=== PATIENT | female | born 1970 | race Caucasian/White ===

== ENCOUNTER → 2020-03-14 18:03 | Outpatient (CLI) | payer OTHER, SELFPAY ==
[2020-03-14 18:58] LABS: Basophils # 0.1 K/mm3 (0-0.2); Basophils % 1.4 % (0.1-2.0); Eosinophils # 0.2 K/mm3 (0.0-0.4); Eosinophils % 2.8 % (0.1-12.0); Hematocrit 41.9 % (37.0-47.0); Hemoglobin 14.5 g/dL (12.2-16.2); Lymphocytes # 2.3 K/mm3 (0.7-4.5); Lymphocytes % 31.2 % (10-50); Mean Corpuscular HGB Conc 34.7 g/dL (31.8-35.4); Mean Corpuscular Hemoglobin 30.5 pg (27.0-31.2); Mean Corpuscular Volume 87.8 fl (81-99); Mean Platelet Volume 9.4 fl (7.4-10.4); Monocytes # 0.4 K/mm3 (0.1-1.0); Monocytes % 5.8 % (1.7-9.3); Neutrophils # 4.3 K/mm3 (1.8-7.8); Neutrophils % 58.9 % (37.0-80.0); Platelet Count 359 K/mm3 (142-424); Red Blood Count 4.77 M/mm3 (4.20-5.40); Red Cell Distribution Width 13.3 % (11.5-17.5); White Blood Count 7.4 K/mm3 (4.8-10.8)
[2020-03-14 19:07] LABS: Chloride 104 mmol/L (98-107); Potassium 4.1 mmoL/L (3.5-5.1); Sodium 139 mmol/L (136-145)
[2020-03-14 19:09] LABS: Alanine Aminotransferase 55 U/L (12-78); Alkaline Phosphatase 96 U/L (38-126); Aspartate Amino Transferase 66 U/L (14-36); Bilirubin,Total 0.7 mg/dl (0.2-1.3); Blood Urea Nitrogen 22 mg/dl (7-17); Estimated Glomerular Filt Rate 76 ml/min (>60); GFR (African American) 92 ML/MIN (>60)
[2020-03-14 19:10] LABS: Albumin Level 4.5 g/dl (3.5-5.0); Albumin/Globulin Ratio 1.4 (1.1-1.8); Anion Gap 13.1 mEq/L (5-15); Calcium 9.6 mg/dl (8.4-10.2); Carbon Dioxide 26 mmol/L (22.0-30.0); Chol/HDL Ratio 3.7 (1-3.5); Cholesterol 201 mg/dl (140-200); Globulin 3.3 g/dL (1.3-3.2); Glucose 98 mg/dl (74-100); HDL Cholesterol 55 mg/dl (40-60); Total Protein,Serum 7.8 g/dl (6.3-8.2); Triglycerides 106 mg/dl (30-150); VLDL Cholesterol 21 mg/dL (0-40)
[2020-03-14 19:21] LABS: Direct LDL Cholesterol 124.93 mg/dL (100-129)
[2020-03-14 19:29] LABS: Erythrocyte Sedimentation Rate 15 mm/hr (0-30)
[2020-03-14 19:38] LABS: Thyroid Stimulating Hormone 1.94 uIU/mL (0.465-4.68)
[2020-03-16 13:38] LABS: Anti-Centromere B Antibodies <0.2 AI (0.0-0.9); Anti-Jo-1 <0.2 AI (0.0-0.9); Anti-Smith Antibody <0.2 AI (0.0-0.9); Antichromatin Antibodies <0.2 AI (0.0-0.9); Antiscleroderma-70 Antibodies <0.2 AI (0.0-0.9); RNP Antibodies 0.3 AI (0.0-0.9); Sjogren's Anti-SS-A <0.2 AI (0.0-0.9); Sjogren's Anti-SS-B <0.2 AI (0.0-0.9)
[2020-03-16 15:50] LABS: Anti-DNA (DS) Ab Qn 20 IU/mL (0-9); RA Latex Turbid. <10.0 IU/mL (0.0-13.9)
== END ==
PROVIDERS: Visit Provider Family Medicine
DX: M25.50 Pain in unspecified joint (principal); E03.9 Hypothyroidism, unspecified
CPT/HCPCS: 80053; 80061; 84443; 85025; 85651; 86225; 86235; 86431

== ENCOUNTER → 2020-06-27 11:31 | Outpatient (CLI) | payer OTHER, SELFPAY ==
--- NOTE | 2020-06-27 11:50 | CT_ITS ---
PROCEDURE: CT ANGIO CHEST CLINCIAL INDICATION: r/o PE Ro pe negative heart cath Saturday soa Chest pain COMPARISON: No exams were available for comparison TECHNIQUE: IV Contrast: 70ML Isovue 370 Axial images obtained with sagittal and coronal reformats. All CT scans at the facility use one or more dose reduction, viz: automated exposure control, ma/kV adjustment per patient size (including targeted exams where dose is matched to indication, i.e. head), or iterative reconstruction technique. FINDINGS: HEART AND MEDIASTINAL STRUCTURES: No evidence of pulmonary embolus, aortic aneurysm, or aortic dissection. Normal heart size. Partially calcified nodes are present in the subcarinal region. There are coronary artery calcifications noted. Small hiatal hernia LUNGS AND PLEURAL SPACES: Patchy density right middle lobe laterally suggesting a small area of atelectasis or infiltrate. Calcified granuloma left lower lobe BONY STRUCTURES: There are mild degenerative changes in the thoracic spine with mild kyphosis UPPER ABDOMEN: Unremarkable. ADDITIONAL FINDINGS: Mild thickening of the gastric wall throughout especially in the antrum. Mild splenomegaly IMPRESSION: 1. No evidence of pulmonary embolus. 2. Minimal atelectatic changes versus patchy infiltrate in the right middle lobe laterally. 3. Small hiatal hernia. 4. Thickening of the gastric wall especially in the antral region. Gastritis is considered. Cannot exclude infiltrative process such as neoplasm in the antrum. Upper endoscopy suggested for further evaluation. Dictated by: Octavio Quiroz MD 06/28/2020 09:25 Octavio Quiroz MD in [place] 06/28/2020 09:25
[2020-06-27 12:10] LABS: Chloride 105 mmol/L (98-107); Sodium 138 mmol/L (136-145)
[2020-06-27 12:13] LABS: Blood Urea Nitrogen 18 mg/dl (7-17); Calcium 9.7 mg/dl (8.4-10.2); Carbon Dioxide 26 mmol/L (22.0-30.0); Estimated Glomerular Filt Rate 76 ml/min (>60); GFR (African American) 92 ML/MIN (>60); Glucose 149 mg/dl (74-100)
[2020-06-27 12:26] LABS: Anion Gap 10.7 mEq/L (5-15); Potassium 3.7 mmoL/L (3.5-5.1)
== END ==
PROVIDERS: Visit Provider Family Medicine
DX: Z01.818 Encounter for other preprocedural examination (principal); R07.9 Chest pain, unspecified; R06.00 Dyspnea, unspecified
CPT/HCPCS: 36415; 71275; 80048; 82565; 84520; Q9967

== ENCOUNTER → 2020-08-02 18:35 | Outpatient (CLI) | payer OTHER, SELFPAY ==
[2020-08-02 19:21] LABS: Basophils # 0.1 K/mm3 (0-0.2); Basophils % 0.9 % (0.1-2.0); Eosinophils # 0.2 K/mm3 (0.0-0.4); Eosinophils % 2.9 % (0.1-12.0); Hematocrit 45.2 % (37.0-47.0); Hemoglobin 14.4 g/dL (12.2-16.2); Lymphocytes # 2.5 K/mm3 (0.7-4.5); Mean Corpuscular Hemoglobin 28.6 pg (27.0-31.2); Mean Corpuscular Volume 89.7 fl (81-99); Monocytes # 0.5 K/mm3 (0.1-1.0); Neutrophils # 4.8 K/mm3 (1.8-7.8); Neutrophils % 59.2 % (37.0-80.0); Platelet Count 345 K/mm3 (142-424); Red Blood Count 5.04 M/mm3 (4.20-5.40); Red Cell Distribution Width 13.4 % (11.5-17.5)
[2020-08-02 19:39] LABS: Chloride 102 mmol/L (98-107); Potassium 4.2 mmoL/L (3.5-5.1); Sodium 139 mmol/L (136-145)
[2020-08-02 19:41] LABS: Alanine Aminotransferase 25 U/L (12-78); Alkaline Phosphatase 86 U/L (38-126); Anion Gap 12.2 mEq/L (5-15); Aspartate Amino Transferase 32 U/L (14-36); Bilirubin,Total 0.8 mg/dl (0.2-1.3); Blood Urea Nitrogen 26 mg/dl (7-17); Carbon Dioxide 29 mmol/L (22.0-30.0); Estimated Glomerular Filt Rate 66 ml/min (>60); GFR (African American) 80 ML/MIN (>60)
[2020-08-02 19:42] LABS: Albumin Level 4.8 g/dl (3.5-5.0); Albumin/Globulin Ratio 1.4 (1.1-1.8); Calcium 9.9 mg/dl (8.4-10.2); Globulin 3.5 g/dL (1.3-3.2); Glucose 75 mg/dl (74-100); Total Protein,Serum 8.3 g/dl (6.3-8.2)
[2020-08-02 20:12] LABS: Thyroid Stimulating Hormone 0.57 uIU/mL (0.465-4.68)
== END ==
PROVIDERS: Visit Provider Family Medicine
DX: R07.9 Chest pain, unspecified (principal)
CPT/HCPCS: 80053; 84443; 85025

== ENCOUNTER → 2020-08-24 09:03 | Outpatient (CLI) | payer OTHER, SELFPAY ==
[2020-08-24 10:08] LABS: Coronavirus 19 IgG Antibody Positive (Negative); Coronavirus 19 IgM Antibody Negative (Negative)
== END ==
PROVIDERS: Visit Provider Internal Medicine Gastroenterology
DX: Z01.818 Encounter for other preprocedural examination (principal); Z20.822 Contact with and (suspected) exposure to COVID-19; Z13.810 Encounter for screening for upper gastrointestinal disorder; K21.00 Gastro-esophageal reflux disease with esophagitis, without bleeding
CPT/HCPCS: 36415; 86328

== ENCOUNTER 2020-08-26 08:25 | Day surgery (SDC) | payer OTHER, SELFPAY ==
[2020-08-22 12:25] VITALS: BMI 39.5
[2020-08-26] VITALS (7 sets, daily range): BP systolic 108–136; BP diastolic 69–82; PULSE 56–71; RESP 18; TEMP 36.1; O2SAT 93–99
--- NOTE | 2020-08-26 09:56 | P.PN_ITS ---
[facility] Anesthesia Checklist - Structural Data Admitted From: Home Planned Operative Procedure/s: egd Consent for Planned Operative Procedure(s) Verified: Yes - Airway Assessment C-Spine Mobility Assessed: Yes TMJ Mobility Assessed: Yes Dentition: Good Dentition - Neurological Assessment Level of Consciousness: Awake, Alert, Appropriate - Anesthesia Plan Anesthesia Risk discussed: Yes Anesthesia Plan: Patient unable to respond/answer ASA Class: II Anesthesia Type: MAC [facility] History I have reviewed the patient's past medical history: Yes Medical History: Reports:: Depression, Gastroesophageal Reflux Disease(GERD) Denies:: Cancer, Diabetes Mellitus Type 1, Diabetes Mellitus Type 2, MRSA, Seizures *Have you ever received a pneumonia vaccine?: No *Have you received a flu vaccine this season?: No Other Medical History: Reports: Hypothyroidism Anesthesia experience/problems:: none Laterality Cases: Bilateral: Carpal Tunnel Release, Tonsillectomy Other Surgeries: Yes: Cardiac Catheterization, Cholecystectomy, Colonoscopy, C- section, Hysterectomy-Partial Amputation: No Fractures: No - *Social History Last grade of school completed: Advanced degree Smoking Status: Never smoker Alcohol Intake: never Substance Use Type: denies use *Occupational Status:: employed Housing: house *Travel in the last 8 weeks: None - Psychiatric History Pschychiatric History:: Reports:: Depression Family Hx:: Unable to obtain, No significant family history
--- NOTE | 2020-08-26 10:06 | HMH.PROC ---
[facility] Procedure Note Procedure Note:: Upper Endoscopy Procedure Report: Esophagogastroduodenoscopy with cold biopsies Endoscopost: Dany Nelson II, MD Referring Physician: Ankush Ansari MD Date of Procedure: August 26, 2020 Equipment: Olympus GIF 190 standard upper endoscope Sedation: MAC sedation Indications: Mrs. Mustafa is a 50-year-old female who had a CTA on June 28, 2020 and this did show some thickening of the gastric wall in the antrum of the stomach with differential including gastritis versus infiltrative process. The patient does report epigastric abdominal pain and pain across the upper abdomen. She has had gassiness. She also reports early satiety and some bloating and belching. She reports postprandial bowel urgency. She reports no melena, hematochezia or weight loss. She has had no dysphagia. Her heartburn and reflux is controlled with omeprazole. This is her first upper endoscopy. Procedure: Prior to the procedure, a history and physical exam was performed, and patient's medications and allergies were reviewed. The risks, benefits and alternatives of the sedation and procedure were discussed with the patient. All questions were answered and informed consent was obtained. The patient was brought to the procedure room. Patient identification and proposed procedure were verified by the physician and the nurse. The patient was placed in a left lateral decubitus position and the scope was passed under direct vision. Throughout the procedure, the patient's blood pressure, pulse, and oxygen saturations were monitored continuously. The upper GI endoscopy was accomplished without difficulty. The patient tolerated the procedure well. Findings: The scope was passed directly into the upper esophagus and advanced to the third portion of the duodenum. The post bulbar duodenum and duodenal bulb were normal with normal mucosa and conniventes. The scope was withdrawn through a normal duodenal bulb and pylorus into the stomach. There was mild linear reactive gastropathy of the antrum with bile reflux. There was also an 8 mm submucosal polypoid nodule in the antrum. Because of its submucosal nature, well biopsies were taken to get deeper tissue for histologic analysis. The remainder of the body and fundus of the stomach were grossly normal. There was very minimal chronic gastritis. Upon retroflexion there was no hiatal hernia. 2 biopsies were taken in the antrum and along the lesser curvature for histology to rule out gastritis and/or H pylori. The scope was then withdrawn into the esophagus. There was no evidence of reflux esophagitis or Pedro's. There was no Schatzki's ring. The remainder of the esophageal mucosa was normal. Impression: 1. Bile reflux with mild linear reactive gastropathy 2. Gastric antral polypoid nodule (8 mm)?submucosal lesion rule out lipoma versus leiomyoma versus small GIST Plan: I will follow-up the biopsies. I do not feel that this small antral lesion is causing her symptoms of dyspepsia. We will discuss dietary measures and treatment options. If the biopsies of the polypoid nodule are nondiagnostic, I would consider endoscopic ultrasound.
== END 2020-08-26 11:10 | disposition home or self-care (01) ==
LOC: OUTP 08:26
PROVIDERS: PCP Family Medicine; Visit Provider Internal Medicine Gastroenterology
PROC: 0DJ08ZZ Inspection of Upper Intestinal Tract, Via Natural or Artificial Opening Endoscopic (ICD-10-PCS; CPT 43235; principal; 2020-08-26 09:30)
DX: K21.9 Gastro-esophageal reflux disease without esophagitis (principal); K31.9 Disease of stomach and duodenum, unspecified; K31.7 Polyp of stomach and duodenum; F32.9 Major depressive disorder, single episode, unspecified; J45.909 Unspecified asthma, uncomplicated; E03.9 Hypothyroidism, unspecified; M79.7 Fibromyalgia
CPT/HCPCS: 43239

== ENCOUNTER → 2020-09-16 11:27 | Outpatient (CLI) | payer OTHER, SELFPAY ==
[2020-09-16 13:41] LABS: Coronavirus 19 IgG Antibody Negative (Negative); Coronavirus 19 IgM Antibody Negative (Negative)
== END ==
PROVIDERS: Visit Provider Internal Medicine Gastroenterology
DX: Z01.812 Encounter for preprocedural laboratory examination (principal); Z20.822 Contact with and (suspected) exposure to COVID-19; Z12.11 Encounter for screening for malignant neoplasm of colon
CPT/HCPCS: 36415; 86328

== ENCOUNTER 2020-09-19 09:45 | Day surgery (SDC) | payer OTHER, SELFPAY ==
[2020-09-17 11:04] VITALS: BMI 38.5
[2020-09-19 10:03] VITALS: BP 145/83; PULSE 77; RESP 16; TEMP 36.3; O2SAT 97
[2020-09-19 10:24] VITALS: O2SAT 98
--- NOTE | 2020-09-19 10:52 | P.PN_ITS ---
[facility] Anesthesia Checklist - Structural Data Planned Operative Procedure/s: colonoscopy Consent for Planned Operative Procedure(s) Verified: Yes - Airway Assessment C-Spine Mobility Assessed: Yes TMJ Mobility Assessed: Yes Dentition: Good Dentition - Neurological Assessment Level of Consciousness: Awake, Alert, Appropriate - Anesthesia Plan Anesthesia Risk discussed: Yes Anesthesia Plan: Verified ASA Class: II Anesthesia Type: MAC [facility] History I have reviewed the patient's past medical history: Yes Medical History: Reports:: Depression, Gastroesophageal Reflux Disease(GERD) Denies:: Cancer, Diabetes Mellitus Type 1, Diabetes Mellitus Type 2, Internal Pacemaker, MRSA, Seizures *Have you ever received a pneumonia vaccine?: No *Have you received a flu vaccine this season?: No Other Medical History: Reports: Hypothyroidism Anesthesia experience/problems:: none Laterality Cases: Bilateral: Carpal Tunnel Release, Tonsillectomy Other Surgeries: Yes: Cardiac Catheterization, Cholecystectomy, Colonoscopy, C- section, Hysterectomy-Partial. No: Pacemaker Amputation: No Fractures: No - *Social History Last grade of school completed: Some college Smoking Status: Never smoker Alcohol Intake: never Substance Use Type: denies use *Occupational Status:: unemployed Housing: house Household Members: none *Travel in the last 8 weeks: None - Psychiatric History Pschychiatric History:: Reports:: Depression Family Hx:: Unable to obtain, No significant family history
--- NOTE | 2020-09-19 10:54 | P.PCN_ITS ---
[facility] Procedure Note Procedure Note:: Colonoscopy Procedure Report: Colonoscopy with cold snare polypectomy Endoscopist: Dany Nelson II, MD Referring physician: Ankush Ansari MD Date of Procedure: September 19, 2020 Equipment: Olympus 190 variable stiffness pediatric colonoscope Sedation: MAC sedation Indication: Mrs. Shaikh is a 50-year-old female who is here for diagnostic colonoscopy. She has had pain across the mid abdomen with bloating, fullness and some belching. She did have a CAT scan that showed some thickening of the lower stomach (on June 28, 2020). She had an EGD with ct on 08/26/2020 that showed some bile gastropathy. The patient does state that her sister had colon cancer at the age of 53. Her last colonoscopy was 3 to 4 years ago and she had a couple of polyps removed. She reports no rectal bleeding or weight loss. She reports regular bowel function. Procedure: Prior to the procedure, a history and physical exam was performed, and patient's medications and allergies were reviewed. The risks, benefits and alternatives of the sedation and procedure were discussed with the patient. All questions were answered and informed consent was obtained. The patient was brought to the procedure room. Patient identification and proposed procedure were verified by the physician and the nurse. The patient was placed in a left lateral decubitus position and the scope was passed under direct vision. Throughout the procedure, the patient's blood pressure, pulse, and oxygen saturations were monitored continuously. The colonoscopy was accomplished without difficulty. The patient tolerated the procedure well. Findings: On digital rectal examination there was normal rectal tone. There were no external hemorrhoids. The colonoscope was introduced through the anal canal to the rectum and advanced to the cecum. The ileocecal valve and appendiceal orifice were identified. The scope was advanced a short distance into the ileum which appeared grossly normal. The scope was then withdrawn into the colon. The cecum, ascending, transverse and descending colon were grossly normal. The sigmoid colon was normal. There was a diminutive 3 to 4 mm polyp in the rectosigmoid removed via cold snare polypectomy. The remaining rectum was normal. There were no other mucosal abnormalities identified. Upon retroflexion within the rectum there were grade 1 internal hemorrhoids.The preparation was good throughout with [place] Preparation Score of 8 out of 9. The cecal time was 12 minutes. Impression: 1. Diminutive rectosigmoid polyp 2. Grade 1 internal hemorrhoids Plan: I do feel the patient most likely has some obstipation/incomplete defecation. We will discuss additional dietary measures and treatment options of her functional abdominal pain/visceral sensitivity. I will follow up the polyp histology and recommend repeat screening/surveillance colonoscopy in 5 years based upon her family history.
[2020-09-19 10:55] VITALS: BP 95/59; PULSE 67; RESP 18; O2SAT 94
[2020-09-19 11:05] VITALS: BP 95/59; PULSE 66; RESP 18; TEMP 36.3; O2SAT 96
[2020-09-19 11:15] VITALS: BP 110/70; PULSE 68; RESP 18; O2SAT 97
[2020-09-19 11:25] VITALS: BP 118/72; PULSE 70; RESP 18; O2SAT 97
== END 2020-09-19 12:08 | disposition home or self-care (01) ==
LOC: OUTP 09:48
PROVIDERS: PCP Family Medicine; Visit Provider Internal Medicine Gastroenterology
PROC: 0DJD8ZZ Inspection of Lower Intestinal Tract, Via Natural or Artificial Opening Endoscopic (ICD-10-PCS; CPT 45378; principal; 2020-09-19 11:30)
DX: K63.5 Polyp of colon; K64.0 First degree hemorrhoids; Z80.0 Family history of malignant neoplasm of digestive organs; Z86.010 Personal history of colon polyps; F32.9 Major depressive disorder, single episode, unspecified; K21.9 Gastro-esophageal reflux disease without esophagitis; E03.9 Hypothyroidism, unspecified; Z87.39 Personal history of other diseases of the musculoskeletal system and connective tissue; Z79.899 Other long term (current) drug therapy
CPT/HCPCS: 45385

== ENCOUNTER 2020-11-14 16:29 | Emergency (ER) | payer OTHER, SELFPAY ==
[2020-11-14 16:30] VITALS: BP 184/91; PULSE 86; RESP 30; TEMP 36.6; O2SAT 98; BMI 40.3
--- NOTE | 2020-11-14 16:32 | ECG_ITS ---
APPROVED REPORT Exam: Resting ECG HR:81 bpm ECG Measurements Heart Rate 81 AXES WV 138 P 53 QRSd 76 QRS 12 QT 398 T 23 QTc 462 Conclusion Normal sinus rhythm Possible Left atrial enlargement Borderline ECG Electronically signed by : Ankush Hicks, 11/15/2020 22:00:24
--- NOTE | 2020-11-14 16:33 | XR_ITS ---
PROCEDURE INFORMATION: Exam: XR Chest Exam date and time: 11/14/2020 4:33 PM Age: 50 years old Clinical indication: Cough and shortness of breath; Patient HX: Cough, SOA TECHNIQUE: Imaging protocol: XR of the chest. Views: 1 view. Portable AP exam 5:05 p.m. COMPARISON: Report from CT ANGIO CHEST 06/27/2020 12:39 PM; the images are not available on PACS for comparison at this time. FINDINGS: Tubes, catheters and devices: Overlying alarm security or surveillance monitor electrodes and oxygen tubing. Lungs: Slight hypoventilation. Mild asymmetric interstitial prominence and hazy right pulmonary opacity compared with left, which may be in part artifact from overlying soft tissue shadows, but could be asymmetric airspace disease such as edema or pneumonia. No focal consolidation. Pleural spaces: Unremarkable. No significant pleural effusion. No pneumothorax. Heart/Mediastinum: Cardiac size appears borderline enlarged, accentuated by portable AP technique. The previously reported small hiatal hernia seen on CT is not well demonstrated on this portable chest x-ray. Bones/joints: No definite acute fracture. IMPRESSION: 1. Slight asymmetric interstitial prominence and hazy opacity in the right lung compared with left, possibly artifact from slightly rotated positioning and overlying soft tissue shadows. Differential would be mild asymmetric vascular congestion/edema or pneumonia on the right. 2. No focal consolidation.
[2020-11-14 16:34] VITALS: BMI 39.5
[2020-11-14 16:49] LABS: Chloride 104 mmol/L (98-107); Potassium 3.5 mmoL/L (3.5-5.1); Sodium 138 mmol/L (136-145)
[2020-11-14 16:50] LABS: Basophils # 0.1 K/mm3 (0-0.2); Basophils % 0.6 % (0.1-2.0); Eosinophils # 0.3 K/mm3 (0.0-0.4); Eosinophils % 2.4 % (0.1-12.0); Hematocrit 40.6 % (37.0-47.0); Hemoglobin 14.2 g/dL (12.2-16.2); Lymphocytes % 34.4 % (10-50); Mean Corpuscular HGB Conc 34.8 g/dL (31.8-35.4); Mean Corpuscular Hemoglobin 30.3 pg (27.0-31.2); Mean Corpuscular Volume 86.9 fl (81-99); Mean Platelet Volume 7.1 fl (7.4-10.4); Monocytes # 0.6 K/mm3 (0.1-1.0); Monocytes % 5.3 % (1.7-9.3); Neutrophils # 6.7 K/mm3 (1.8-7.8); Neutrophils % 57.3 % (37.0-80.0); Platelet Count 405 K/mm3 (142-424); Red Blood Count 4.67 M/mm3 (4.20-5.40); Red Cell Distribution Width 13.9 % (11.5-17.5); White Blood Count 11.7 K/mm3 (4.8-10.8)
[2020-11-14 16:51] LABS: Blood Urea Nitrogen 19 mg/dl (7-17); Creatinine Clearance Estimated 155 mL/min (50-200); Estimated Glomerular Filt Rate 76 ml/min (>60); GFR (African American) 92 ML/MIN (>60)
[2020-11-14 16:52] LABS: Alanine Aminotransferase 62 U/L (12-78); Albumin Level 5.1 g/dl (3.5-5.0); Albumin/Globulin Ratio 1.4 (1.1-1.8); Alkaline Phosphatase 114 U/L (38-126); Anion Gap 14.5 mEq/L (5-15); Aspartate Amino Transferase 58 U/L (14-36); Bilirubin,Total 0.7 mg/dl (0.2-1.3); Calcium 9.7 mg/dl (8.4-10.2); Carbon Dioxide 23 mmol/L (22.0-30.0); Globulin 3.6 g/dL (1.3-3.2); Glucose 142 mg/dl (74-100); Total Protein,Serum 8.7 g/dl (6.3-8.2)
[2020-11-14 17:24] LABS: Thyroid Stimulating Hormone 2.97 uIU/mL (0.465-4.68)
[2020-11-14 17:28] VITALS: BP 102/84; PULSE 81; RESP 20; O2SAT 98
--- NOTE | 2020-11-14 17:42 | HMH.EDSOB ---
ED Disposition Clinical Impression: Asthma with exacerbation Qualifiers: Asthma severity: mild Asthma persistence: intermittent Qualified Code(s): J45.21 - Mild intermittent asthma with (acute) exacerbation Community acquired pneumonia Qualifiers: Laterality: right Lung location: lower lobe of lung Qualified Code(s): J18.9 - Pneumonia, unspecified organism Disposition: Home, Self-Care Condition on Discharge: Good Instructions: Pneumonia-Adult Prescriptions: Doxycycline Hyclate [Doxycycline Hyclate 100mg Tablet] 100 mg PO Q12 10 Days #20 tab Prescription Printed methylPREDNISolone [Medrol 4mg tab] 4 mg PO DIRECTED #21 tab Prescription Printed Referrals: Maged Ansari MD [Primary Care Provider] - - Critical Care Critical Care Time: No Attestation: On 11/14/20, the high probability of a clinically significant, sudden or life threatening deterioration of the following system(s) required my full and direct attention, intervention and personal management. The time I documented below is in addition to time spent performing reported procedures but includes the following listed in this critical care notation. Medical Decision Making - Medical Records Medical records reviewed: Yes: I reviewed the patient's medical records. - Bruno Inquiry Pt receiving controlled substance: No Vital Signs: 11/14/20 16:30 11/14/20 17:28 Temperature 98 F Temperature Source Oral Pulse Rate 81 Pulse Rate [Radial] 86 Respiratory Rate 30 H 20 Blood Pressure 102/84 L Blood Pressure [Right Arm] 184/91 H Blood Pressure Mean [Right Arm] 122 Blood Pressure Position [Right Arm] Sitting 02 Sat by Pulse Oximetry 98 98 Oxygen Delivery Method Room Air - Lab Data Lab Results 11/14/20 16:32: WBC 11.7 H, RBC 4.67, Hgb 14.2, Hct 40.6, MCV 86.9, MCH 30.3, MCHC 34.8, RDW 13.9, Plt Count 405, MPV 7.1 L, Neut % (Auto) 57.3, Lymph % (Auto) 34.4, Taylor % (Auto) 5.3, Eos % (Auto) 2.4, Baso % (Auto) 0.6, Neut # (Auto) 6.7, Lymph # (Auto) 4.0, Taylor # (Auto) 0.6, Eos # (Auto) 0.3, Baso # (Auto) 0.1 11/14/20 16:32: Sodium 138, Potassium 3.5, Chloride 104, Carbon Dioxide 23, Anion Gap 14.5, BUN 19 H, Creatinine 0.80, Estimated Creat Clear 155, Estimated GFR 76, Est GFR ( Amer) 92, Glucose 142 H, Calcium 9.7, Total Bilirubin 0.7, AST 58 H, ALT 62, Alkaline Phosphatase 114, Total Protein 8.7 H, Albumin 5.1 H, Globulin 3.6 H, Albumin/Globulin Ratio 1.4, TSH 2.97 Result diagrams: 11/14/20 16:32 11/14/20 16:32 Orders (Tests/Meds): ED MEDICATIONS Generic Name Dose Route Start Last Admin Trade Name Freq PRN Reason Stop Dose Admin Sodium Chloride 10 ml 11/14/20 16:34 Sodium Chloride 0.9% 10ml Vial IV 12/14/20 16:33 NEEDED PRN to Dilute Lorazepam inj Discontinued Medications Generic Name Dose Route Start Last Admin Trade Name Freq PRN Reason Stop Dose Admin Sodium Chloride 1,000 mls @ 999 mls/hr 11/14/20 16:45 11/14/20 16:43 Sod Chlor 0.9% 1000ml Bag IV 11/14/20 17:45 999 mls/hr .Q1H1M ANNY Administration Magnesium Sulfate 2 gm/ Sodium 104 mls @ 100 mls/hr 11/14/20 16:34 11/14/20 16:44 Chloride IV 11/14/20 17:36 100 mls/hr ONCE ONE Administration Lorazepam 1 mg 11/14/20 16:34 11/14/20 16:46 Lorazepam 2mg/Ml Vial IV 11/14/20 16:35 1 mg ONCE ONE Administration - Radiology Data #1 Image(s): Chest Image Reviewed: Yes I reviewed the patient's radiology results, Yes I discussed the image results w/the radiologist, Yes I have reviewed radiologist's interpretation IMPRESSION: 1. Slight asymmetric interstitial prominence and hazy opacity in the right lung compared with left, possibly artifact from slightly rotated positioning and overlying soft tissue shadows. Differential would be mild asymmetric vascular congestion/edema or pneumonia on the right. 2. No focal consolidation. - ECG Data Tracing #1 No ventricular rate 81 bpm, normal TX interval
[2020-11-14 19:04] VITALS: BP 126/74; PULSE 74; RESP 16; TEMP 36.6; O2SAT 98
== END 2020-11-14 19:05 | disposition home or self-care (01) ==
PROVIDERS: Emergency Provider Emergency Medicine; PCP Family Medicine
DX: J18.9 Pneumonia, unspecified organism (principal); J45.21 Mild intermittent asthma with (acute) exacerbation; K21.9 Gastro-esophageal reflux disease without esophagitis; F33.1 Major depressive disorder, recurrent, moderate; Z79.899 Other long term (current) drug therapy
CPT/HCPCS: 71045; 80053; 84443; 85025; 93005; 96365; 96375; 99282

== ENCOUNTER 2020-11-22 16:33 | Emergency (ER) | payer OTHER, SELFPAY ==
[2020-11-22 16:56] VITALS: BP 142/81; PULSE 86; RESP 19; TEMP 36.6; O2SAT 97; BMI 40.6
[2020-11-22 17:24] VITALS: BP 142/81; PULSE 86; RESP 19; TEMP 36.6; O2SAT 97
--- NOTE | 2020-11-22 17:36 | HMH.EDUTC ---
[facility] Disposition Clinical Impression: Cellulitis Qualifiers: Site of cellulitis: trunk Site of cellulitis of trunk: abdominal wall Qualified Code(s): L03.311 - Cellulitis of abdominal wall Disposition: Home, Self-Care Condition on Discharge: Good Instructions: Cellulitis Additional Instructions: Keep the wounds clean and dry. Follow up with your regular doctor. Take the antibiotics as directed and apply the topical antibiotics as directed. Watch the area of redness to make sure it starts getting smaller instead of bigger. GO TO THE ER FOR ANY WORSENING SYMPTOMS Prescriptions: Mupirocin [Bactroban 2% Ointment 22gm tube] 1 applicatio TP TID 7 Days #1 tube Transmission Status: Received by [facility] #[id number] cephALEXin [cephALEXin 500mg capsule] 500 mg PO Q6H 10 Days #40 cap Transmission Status: Received by [facility] #[id number] Referrals: Maged Ansari MD [Primary Care Provider] - Time of Disposition: 17:37 Medical Decision Making - Medical Records Medical records reviewed: No: I reviewed the patient's medical records. - Bruno Inquiry Pt receiving controlled substance: No Vital Signs: 11/22/20 16:56 11/22/20 17:24 Temperature 97.9 F 97.9 F Temperature Source Oral Pulse Rate 86 Pulse Rate [Right Brachial] 86 Respiratory Rate 19 19 Blood Pressure 142/81 H Blood Pressure [Right Arm] 142/81 H Blood Pressure Mean [Right Arm] 101 Blood Pressure Source [Right Arm] Automatic Cuff Blood Pressure Position [Right Arm] Sitting 02 Sat by Pulse Oximetry 97 Oxygen Delivery Method Room Air [facility] HPI - General Stated complaint: bug bite on left side Time Seen by Provider: 11/22/20 17:00 Mode of Arrival: Ambulatory Source of Information: Patient Description of Symptoms (Recalled from Triage Doc. by RN): bite on left abdomin HEENT Symptoms (Recalled from RN notes): No Resp Symptoms (Recalled from RN notes): No Skin Symptoms (Recalled from RN notes): No MS Symptoms (Recalled from RN notes): No Functional Status (Recalled from RN notes): na - History of Present Illness Provider Complaint: She states that she has a red area on her left abdomen. She thinks that she was bit by a bug she thinks. - Related Data Home Medications Medication Instructions Recorded Confirmed Fluticasone/Vilanterol [Breo 1 inh IH DAILY 08/26/20 11/14/20 Ellipta 100-25 Mcg INH] Levothyroxine Sodium [Synthroid 150 mcg PO DAILY 08/26/20 11/14/20 150mcg (0.15mg) tablet] Meloxicam 15 mg PO DAILY 08/26/20 11/14/20 Venlafaxine HCl [Effexor Xr] 75 mg PO DAILY 08/26/20 11/14/20 Previous Rx's Medication Instructions Recorded buspirone 15 mg tablet 15 mg PO TID PRN #90 tab 08/02/20 triamcinolone acetonide 0.1 % 1 applic DENTAL TID PRN #5 g 08/02/20 dental paste pantoprazole 40 mg tablet,delayed 40 mg PO DAILY #90 tab 08/30/20 release Doxycycline Hyclate [Doxycycline 100 mg PO Q12 10 Days #20 tab 11/14/20 Hyclate 100mg Tablet] methylPREDNISolone [Medrol 4mg 4 mg PO DIRECTED #21 tab 11/14/20 tab] Mupirocin [Bactroban 2% Ointment 1 applicatio TP TID 7 Days #1 tube 11/22/20 22gm tube] cephALEXin [cephALEXin 500mg 500 mg PO Q6H 10 Days #40 cap 11/22/20 capsule] Allergies Allergy/AdvReac Type Severity Reaction Status Date / Time No Known Allergies Allergy Verified 11/22/20 17:23 - Worker's Comp Is this a Worker's Comp case?: No Is this an H Worker's Comp?: No Is this a [place] Worker's Comp?: No [facility] History - Hepatitis A Screen Drug use history?: No High risk sexual behaviors?: No History of sexually transmitted infection?: No Currently employed?: No Childcare worker?: No Do you have indoor plumbing?: Yes Do you have electricity?: Yes Attestation statement:: This patient has been screened for Hepatitis A risk factors. I have reviewed the patient's past medical history: Yes Medical History: Reports:: Depression, Gastroesophageal Reflux Di
== END 2020-11-22 17:42 | disposition home or self-care (01) ==
PROVIDERS: Emergency Provider Nurse Practitioner Family; PCP Family Medicine
DX: L03.311 Cellulitis of abdominal wall (principal); S30.861A Insect bite (nonvenomous) of abdominal wall, initial encounter; W57.XXXA Bitten or stung by nonvenomous insect and other nonvenomous arthropods, initial encounter; K21.9 Gastro-esophageal reflux disease without esophagitis; E03.9 Hypothyroidism, unspecified; F33.1 Major depressive disorder, recurrent, moderate
CPT/HCPCS: 99202; G0463

== ENCOUNTER → 2020-12-27 12:51 | Outpatient (CLI) | payer OTHER, SELFPAY ==
--- NOTE | 2020-12-27 12:54 | XR_ITS ---
PROCEDURE: XR CHEST 2V CLINICAL HISTORY: pneumonia COMPARISON: CT CT ANGIO CHEST from 06/27/2020 CR XR CHEST PORTABLE from 11/14/2020 FINDINGS: The cardiomediastinal silhouette and pulmonary vascularity are within normal limits. The lungs are clear without infiltrates, suspicious nodules, or pleural effusions. No acute bony abnormalities. IMPRESSION: No acute findings. Dictated by: Kim Cabral 12/27/2020 14:33 Kim Cabral in [facility] 12/27/2020 14:33
== END ==
PROVIDERS: PCP Family Medicine; Visit Provider Family Medicine
DX: R06.02 Shortness of breath (principal)
CPT/HCPCS: 71046

== ENCOUNTER → 2022-05-15 10:47 | Outpatient (CLI) | payer OTHER, SELFPAY ==
[2022-05-15 18:53] LABS: Basophils # 0.1 K/mm3 (0-0.2); Basophils % 1.1 % (0.1-2.0); Eosinophils # 0.4 K/mm3 (0.0-0.4); Eosinophils % 3.7 % (0.1-12.0); Hematocrit 45.8 % (37.0-47.0); Hemoglobin 14.9 g/dL (12.2-16.2); Lymphocytes # 2.8 K/mm3 (0.7-4.5); Lymphocytes % 29.2 % (10-50); Mean Corpuscular HGB Conc 32.6 g/dL (31.8-35.4); Mean Corpuscular Volume 92.2 fl (81-99); Mean Platelet Volume 9.6 fl (7.4-10.4); Monocytes # 0.3 K/mm3 (0.1-1.0); Monocytes % 3.4 % (1.7-9.3); Neutrophils # 5.9 K/mm3 (1.8-7.8); Neutrophils % 62.6 % (37.0-80.0); Platelet Count 442 K/mm3 (142-424); Red Blood Count 4.97 M/mm3 (4.20-5.40); Red Cell Distribution Width 12.9 % (11.5-17.5); White Blood Count 9.4 K/mm3 (4.8-10.8)
[2022-05-15 19:00] LABS: Alanine Aminotransferase 40 U/L (12-78); Albumin Level 4.2 g/dl (3.5-5.0); Albumin/Globulin Ratio 1.4 (1.1-1.8); Alkaline Phosphatase 121 U/L (38-126); Aspartate Amino Transferase 39 U/L (14-36); Bilirubin,Total 0.4 mg/dl (0.2-1.3); Blood Urea Nitrogen 20 mg/dl (7-17); Calcium 9.9 mg/dl (8.4-10.2); Carbon Dioxide 25 mmol/L (22.0-30.0); Chloride 104 mmol/L (98-107); Chol/HDL Ratio 5.2 (1-3.5); Cholesterol 202 mg/dl (140-200); Estimated Glomerular Filt Rate 75 ml/min (>60); GFR (African American) 91 ML/MIN (>60); Glucose 236 mg/dl (74-100); HDL Cholesterol 39 mg/dl (40-60); Sodium 139 mmol/L (136-145); Total Protein,Serum 7.2 g/dl (6.3-8.2); Triglycerides 170 mg/dl (30-150); VLDL Cholesterol 34 mg/dL (0-40)
[2022-05-15 19:13] LABS: Direct LDL Cholesterol 128.09 mg/dL (100-129)
[2022-05-15 19:28] LABS: Thyroid Stimulating Hormone 0.71 uIU/mL (0.465-4.68)
[2022-05-15 20:45] LABS: 25-OH Vitamin D, Total < 12.8 ng/mL (30-100)
== END ==
PROVIDERS: PCP Family Medicine; Visit Provider Family Medicine
DX: E03.9 Hypothyroidism, unspecified (principal); E55.9 Vitamin D deficiency, unspecified; Z79.899 Other long term (current) drug therapy
CPT/HCPCS: 80053; 80061; 82306; 84443; 85025

== ENCOUNTER → 2022-05-29 16:51 | Outpatient (CLI) | payer OTHER, SELFPAY ==
--- NOTE | 2022-05-29 16:58 | XR_ITS ---
PROCEDURE INFORMATION: Exam: XR Right Knee Exam date and time: 05/29/2022 5:00 PM Age: 52 years old Clinical indication: Pain; Hip; Right; Additional info: Pain post fall TECHNIQUE: Imaging protocol: Radiologic exam of the Right knee. Views: 3 views. COMPARISON: No relevant prior studies available. FINDINGS: Bones/joints: There is no evidence of acute fracture. There is no evidence of joint malalignment or dislocation. Soft tissues: No focal soft tissue swelling. IMPRESSION: 1. No evidence of acute fracture. 2. No evidence of acute dislocation.
== END ==
PROVIDERS: PCP Family Medicine; Visit Provider Family Medicine
DX: M25.561 Pain in right knee (principal)
CPT/HCPCS: 73562

== ENCOUNTER → 2022-06-06 09:03 | Outpatient (CLI) | payer OTHER, SELFPAY ==
--- NOTE | 2022-06-06 09:03 | MM_ITS ---
PROCEDURE INFORMATION: Exam: MG Bilateral Screening 3D Mammography Exam date and time: 06/06/2022 9:06 AM Age: 52 years old Clinical indication: Screening examination TECHNIQUE: Imaging protocol: Bilateral Screening tomosynthesis and 2D mammography including computer-aided detection (CAD) when performed. COMPARISON: No relevant prior studies available. FINDINGS: MAMMOGRAPHY: Breast composition: The breasts are almost entirely fatty. Mass: None. Architectural distortion: None. Calcifications: No suspicious calcifications. Asymmetric density: None. Skin thickening: None. Axillary adenopathy: None. IMPRESSION: No mammographic evidence of malignancy. Annual screening is recommended unless otherwise clinically indicated. ASSESSMENT: BI-RADS Category 1: Negative
== END ==
PROVIDERS: PCP Family Medicine; Visit Provider Family Medicine
DX: Z12.31 Encounter for screening mammogram for malignant neoplasm of breast (principal)
CPT/HCPCS: 77063; 77067

== ENCOUNTER → 2022-06-18 13:39 | Outpatient (CLI) | payer OTHER, SELFPAY | PROVIDERS: PCP Family Medicine; Visit Provider Family Medicine | DX: G47.33 Obstructive sleep apnea (adult) (pediatric) (principal); R06.83 Snoring | CPT/HCPCS: G0399 ==

== ENCOUNTER → 2022-07-17 15:48 | Outpatient (CLI) | payer OTHER, SELFPAY ==
--- NOTE | 2022-07-17 15:48 | MR_ITS ---
PROCEDURE INFORMATION: Exam: MR Lumbar Spine Without Contrast Exam date and time: 07/17/2022 4:17 PM Age: 52 years old Clinical indication: Low back pain; Additional info: Low back pain, L radicular pain. TECHNIQUE: Imaging protocol: Magnetic resonance imaging of the lumbar spine without contrast. COMPARISON: No relevant prior studies available. FINDINGS: Bones/joints: Alignment is near anatomic. The vertebral body heights are maintained. The disc space heights are maintained. There is mild desiccation of the disc at L5-S1. The marrow signal is normal. No acute osseous injury. Spinal cord: Visualized cord, conus medullaris and cauda equina are unremarkable without compression. L1-L2: No significant disc bulge or herniation. No severe spinal canal stenosis. No significant neural foraminal narrowing. L2-L3: No significant disc bulge or herniation. No severe spinal canal stenosis. No significant neural foraminal narrowing. L3-L4: No significant disc bulge or herniation. No severe spinal canal stenosis. No significant neural foraminal narrowing. L4-L5: L4-L5 minimal bilateral foraminal zone focal disc protrusions are seen without stenosis of the spinal canal. There is degenerative arthritis of the facets with bilateral facet effusions. There is no significant neural foraminal narrowing present. L5-S1: L5-S1 minimal central focal disc protrusion measuring 4 mm AP x 9 mm transverse with associated posterior annular disc tear. This does not cause stenosis of the spinal canal. There is minimal bilateral facet arthritis without significant neural foraminal compromise. Soft tissues: Unremarkable. IMPRESSION: Minimal L4-S1 degenerative disc disease, as described. No spinal canal or neural foraminal stenosis.
== END ==
PROVIDERS: PCP Family Medicine; Visit Provider Family Medicine
DX: M54.50 Low back pain, unspecified (principal); M54.16 Radiculopathy, lumbar region
CPT/HCPCS: 72148; 76376

== ENCOUNTER 2022-08-17 07:48 | Day surgery (SDC) | payer OTHER, SELFPAY ==
[2022-08-14 16:29] VITALS: BMI 34.7
[2022-08-17] VITALS (7 sets, daily range): BP systolic 88–147; BP diastolic 54–81; PULSE 66–75; RESP 14–18; TEMP 36.2–36.6; O2SAT 93–98
--- NOTE | 2022-08-17 08:16 | EXP.ANES.CKL ---
[facility] Disclaimer: The information contained in this section may have been updated after the patient was seen, as this information can be updated by other users. Medical History History of asthma History of back injury History of depression History of diabetes mellitus History of fibromyalgia History of gastroesophageal reflux (GERD) History of hypothyroidism Surgical History History of carpal tunnel release of both wrists History of hysterectomy History of laparoscopic cholecystectomy History of tonsillectomy Family History Other Family history of diabetes mellitus Family history of heart disease Family history of liver disease Social History Smoking Status: Never smoker alcohol intake: never substance use type: denies use current occupational status: other Travel in the last 8 weeks: None household members: none housing: house current occupational exposures/hazards: No caffeine: No [facility] Anesthesia Checklist Patient Identification Patient Identification: Arm Band and Verbal (Name & ) Structural Data Admitted From: Home Planned Operative Procedure/s: Colonoscopy Consent for Planned Operative Procedure(s) Verified: Yes NPO Status Verified Time NPO: 00:00 Airway Assessment C-Spine Mobility Assessed: Yes TMJ Mobility Assessed: Yes Dentition: Good Dentition Neurological Assessment Level of Consciousness: Awake Hx Seizures: No Numbness or tingling in extremities: No Anesthesia Plan Anesthesia Risk discussed: Yes Anesthesia Plan: Verified ASA Class: III Anesthesia Type: MAC
[2022-08-17 08:20] LABS: POC Glucose,Bedside 116 (70-110)
--- NOTE | 2022-08-17 09:29 | HMH.SCOPE ---
Procedure: Date: 08/17/22 Patient Date of :: 1970 Procedure Performed:: Total colonoscopy Indications:: Patient is a 52-year-old female referred for colonoscopy. She has a family history of colonoscopy with her sister dying of colon cancer at the age of 53. She has a brother who has rectal cancer diagnosed in his 50s. She has had a couple previous colonoscopies with polyps removed. Last colonoscopy was 23 months ago on 09/19/[address] Dany Nelson and she had a diminutive polyp. He recommended repeat colonoscopy in 5 years. Patient states that the GoLytely prep was a very delayed reaction Performing Provider:: Noam Agarwal MD Referring Provider:: Ankush Ansari Sedation:: MAC sedation Procedure:: Patient history was obtained and appropriate physical examination was performed. Patient's medications and allergies were reviewed. Informed consent was obtained after explaining the benefits, alternatives, and risks of the procedure including, but not limited to, bleeding, perforation, missed lesions, and adverse reaction to anesthesia medications. Patient was transported to endoscopy procedure room. Patient was connected to monitoring devices. Throughout the procedure the patient's blood pressure, pulse, and oxygen saturations were monitored continuously. Patient identification and planned procedure were verified by the staff. Patient was positioned in lateral decubitus position. Digital anorectal exam was performed. Variable stiffness Olympus colonoscope was inserted and advanced under direct visualization to the cecum. Adequacy of the colonic preparation was noted. The colonoscope was advanced a short distance into the terminal ileum. The colonoscope was then slowly withdrawn while carefully examining the color, texture, anatomy, and integrity of the mucosoa circumferentially. Within the rectum retroflexion was performed. Colonoscope was then withdrawn. Findings:: She had an extremely poor prep. There was liquid stool and some food matter throughout the colon which was rather thick. This was unable to be fully cleared. The colonoscope was able to be advanced throughout the colon and there were no obvious large polyps or obstructing masses. Recommendations:: Repeat colonoscopy in 6 to 12 months with maximum multi day prep Complications:: None immediately apparent Estimated blood obtained (mL): 0
== END 2022-08-17 10:05 | disposition home or self-care (01) ==
PROVIDERS: PCP Family Medicine; Visit Provider Surgery
PROC: 0DJD8ZZ Inspection of Lower Intestinal Tract, Via Natural or Artificial Opening Endoscopic (ICD-10-PCS; CPT 45378; principal; 2022-08-17 08:30)
DX: Z12.11 Encounter for screening for malignant neoplasm of colon (principal); Z91.199 Patient's noncompliance with other medical treatment and regimen due to unspecified reason; Z79.899 Other long term (current) drug therapy; E11.9 Type 2 diabetes mellitus without complications
CPT/HCPCS: 45378; 82962; J2704

== ENCOUNTER → 2022-09-28 16:15 | Outpatient (CLI) | payer OTHER, SELFPAY ==
[2022-09-28 18:33] LABS: Basophils % 0.5 % (0.1-2.0); Eosinophils # 0.3 K/mm3 (0.0-0.4); Eosinophils % 3.1 % (0.1-12.0); Hematocrit 43.6 % (37.0-47.0); Hemoglobin 14.7 g/dL (12.2-16.2); Lymphocytes # 3.3 K/mm3 (0.7-4.5); Mean Corpuscular HGB Conc 33.8 g/dL (31.8-35.4); Mean Corpuscular Hemoglobin 30.3 pg (27.0-31.2); Mean Corpuscular Volume 89.8 fl (81-99); Mean Platelet Volume 9.2 fl (7.4-10.4); Monocytes # 0.5 K/mm3 (0.1-1.0); Monocytes % 5.3 % (1.7-9.3); Neutrophils # 4.9 K/mm3 (1.8-7.8); Neutrophils % 54.1 % (37.0-80.0); Platelet Count 377 K/mm3 (142-424); Red Blood Count 4.85 M/mm3 (4.20-5.40); Red Cell Distribution Width 13.2 % (11.5-17.5)
[2022-09-28 19:20] LABS: Alanine Aminotransferase 50 U/L (12-78); Albumin Level 4.7 g/dl (3.5-5.0); Albumin/Globulin Ratio 1.5 (1.1-1.8); Alkaline Phosphatase 96 U/L (38-126); Anion Gap 16.5 mEq/L (5-15); Aspartate Amino Transferase 44 U/L (14-36); Bilirubin,Total 0.7 mg/dl (0.2-1.3); Blood Urea Nitrogen 24 mg/dl (7-17); Calcium 9.5 mg/dl (8.4-10.2); Carbon Dioxide 24 mmol/L (22.0-30.0); Chloride 102 mmol/L (98-107); Chol/HDL Ratio 4.6 (1-3.5); Cholesterol 228 mg/dl (140-200); Estimated Glomerular Filt Rate 88 ml/min (>60); GFR (African American) 106 ML/MIN (>60); Globulin 3.2 g/dL (1.3-3.2); Glucose 112 mg/dl (74-100); HDL Cholesterol 50 mg/dl (40-60); Potassium 4.5 mmoL/L (3.5-5.1); Sodium 138 mmol/L (136-145); Total Protein,Serum 7.9 g/dl (6.3-8.2); Triglycerides 112 mg/dl (30-150); VLDL Cholesterol 22 mg/dL (0-40)
[2022-09-28 19:31] LABS: Direct LDL Cholesterol 150.06 mg/dL (100-129)
[2022-09-28 19:35] LABS: 25-OH Vitamin D, Total 32.5 ng/mL (30-100)
[2022-09-28 19:48] LABS: Thyroid Stimulating Hormone 0.96 uIU/mL (0.465-4.68)
== END ==
PROVIDERS: PCP Family Medicine; Visit Provider Family Medicine
DX: E03.9 Hypothyroidism, unspecified (principal); E11.9 Type 2 diabetes mellitus without complications; E66.9 Obesity, unspecified; Z68.36 Body mass index [BMI] 36.0-36.9, adult; Z79.84 Long term (current) use of oral hypoglycemic drugs
CPT/HCPCS: 80053; 80061; 82306; 84443; 85025

== ENCOUNTER 2023-07-18 22:01 | Outpatient (CLI) | payer OTHER, SELFPAY ==
[2023-07-18 19:30] LABS: Thyroid Stimulating Hormone 0.37 uIU/mL (0.465-4.68)
[2023-07-19 00:04] LABS: Hemoglobin A1C 6.3 % (4.0-6.0)
== END 2023-07-18 23:59 ==
LOC: LAB.DROPOF 22:01
PROVIDERS: PCP Family Medicine; Visit Provider Family Medicine
DX: E11.9 Type 2 diabetes mellitus without complications (principal); E03.9 Hypothyroidism, unspecified; Z79.84 Long term (current) use of oral hypoglycemic drugs; Z79.85 Long-term (current) use of injectable non-insulin antidiabetic drugs
CPT/HCPCS: 83036; 84443